=== PATIENT | female | born 1990 | race Two or more races ===

== ENCOUNTER 2022-01-06 11:15 | Inpatient (IN) | payer OTHER ==
[~2022-01-06] VITALS: Ht 149.9 cm; Wt 67.1 kg
[2022-01-18] MEDS ORDERED: INTEGRA F CAPS1 EAC1 PO (06:58)
[2022-01-18] MEDS ORDERED: PRENATAL MULTI1 EAC3 PO (06:59)
[2022-01-18] MEDS ORDERED: PRENATAL 19 CH1 EAC1 PO (07:00)
== END 2022-01-20 11:11 | disposition home or self-care (01) | DRG 807 ==
LOC: LDR 01-18 05:22 → OB/GYN 01-18 13:26 → SURG-SUITE 01-18 15:55 → LDR 01-28 11:15
PROVIDERS: ADMIT Obstetrics & Gynecology Maternal & Fetal Medicine; ATTEND Obstetrics & Gynecology Maternal & Fetal Medicine
PROC: 10E0XZZ Delivery of Products of Conception, External Approach (ICD-10-PCS; principal; 2022-01-18)
PROC: 4A1HXCZ Monitoring of Products of Conception, Cardiac Rate, External Approach (ICD-10-PCS; 2022-01-18)
PROC: 0HQ9XZZ Repair Perineum Skin, External Approach (ICD-10-PCS; 2022-01-18)
PROC: 3E033VJ Introduction of Other Hormone into Peripheral Vein, Percutaneous Approach (ICD-10-PCS; 2022-01-18)
DX: O70.0 First degree perineal laceration during delivery (principal); Z37.0 Single live birth; Z3A.38 38 weeks gestation of pregnancy; Z20.822 Contact with and (suspected) exposure to COVID-19